=== PATIENT | male | born 1995 | race African-American/Black ===

== ENCOUNTER 2024-06-16 01:32 | Emergency (ER) | payer SELFPAY ==
[~2024-06-16] VITALS: Ht 177.8 cm; Wt 113.0 kg
[2024-06-16 01:34] VITALS: TEMP 37; O2SAT 99
[2024-06-16] MEDS: MAGNESIUM/ALUMINUM HYDROXIDE/SIMETHICONE 30ML UDC PO STA (02:00)
[2024-06-16 02:22] VITALS: O2SAT 100
[2024-06-16 02:22] LABS: BASOPHILS % 0.4 % (0.0-2.0); EOSINOPHILS % 0.3 % (0.0-5.0); HEMOGLOBIN. 16.6 g/dL (14.0-18.0); LYMPHOCYTES % 12.4 % (20.0-50.0); MEAN CORPUSCULAR HEMOGLOBIN 30.5 pg (28.0-32.0); MEAN CORPUSCULAR HGB CONC 34.6 g/dL (31.0-37.0); MEAN CORPUSCULAR VOLUME 88.2 fL (80.0-94.0); MEAN PLATELET VOLUME 8.4 fl (7.4-10.4); MONOCYTES % 6.7 % (2.0-8.0); NEUTROPHILS % 80.2 % (40.0-76.0); PLATELET 218 x1000/uL (130-400); RED BLOOD CELL COUNT 5.45 mill/uL (4.7-6.1); RED CELL DISTRIBUTION WIDTH 12.8 % (11.6-14.6); WHITE BLOOD COUNT 11.4 x1000/uL (4.5-11.0)
[2024-06-16 02:35] LABS: CHLORIDE 102 mEq/L (98-107); POTASSIUM 4.4 mEq/L (3.5-5.1); SODIUM 140 mEq/L (136-145)
[2024-06-16 02:36] LABS: CARBON DIOXIDE 31 mEq/L (21-32)
[2024-06-16 02:41] LABS: CREATININE 1.1 mg/dL (0.6-1.3); GLUCOSE 113 mg/dL (70-105)
[2024-06-16 02:42] LABS: UREA NITROGEN BLOOD 14 mg/dL (9-23)
[2024-06-16 02:43] LABS: ALANINE AMINOTRANSFERASE 34 IU/L (10-49); ALBUMIN 4.4 g/dL (3.2-4.8); ASPARTATE AMINOTRANSFERASE 24 IU/L (<34); BILIRUBIN DIRECT 0.2 mg/dL (<=3.0)
[2024-06-16 02:44] LABS: BILIRUBIN TOTAL 0.4 mg/dL (0.1-1.0); PROTEIN TOTAL 7.2 g/dL (6.0-8.3)
[2024-06-16] MEDS: ONDANSETRON HCL 4MG/2ML INJ IV STA (03:08)
[2024-06-16] MEDS: KETOROLAC 30MG/ML VIAL IV STA (03:08)
[2024-06-16 03:09] VITALS: BP 124/70; PULSE 74; RESP 18
[2024-06-16] MEDS: MORPHINE SULFATE 4 MG/ML INJ (FOR IV/IM USE) IV STA (03:09)
[2024-06-16] MEDS: PIPERACILLIN/TAZO 3.375G/50ML 50 ML IV NR (04:00)
[2024-06-16] MEDS: PIPERACILLIN/TAZOBACTAM 3.375 G in DEXTROSE 5% WATER 50 ML IV SCH (04:30)
[2024-06-16] MEDS ORDERED: ONDANSETRON HCL 4MG/2ML INJ IV PRN (04:30)
[2024-06-16] MEDS ORDERED: KETOROLAC 30MG/ML VIAL IV PRN (04:45)
[2024-06-16] MEDS ORDERED: PANTOPRAZOLE SODIUM 40 MG/VIAL IV SCH (09:00)
[2024-06-16] MEDS ORDERED: PIPERACILLIN/TAZO 3.375G/50ML 50 ML IV SCH (14:00)
== END 2024-06-16 04:36 | disposition left against medical advice (07) ==
LOC: ER 01:32
DX: K80.00 Calculus of gallbladder with acute cholecystitis without obstruction (principal); Z79.899 Other long term (current) drug therapy
CPT/HCPCS: 99285; 96374; 76705; 96375; 80076; 80048; 83690; 85025; 36415; J1885; J2405; J2270; J2543